=== PATIENT | male | born 1945 | race Caucasian/White ===

== ENCOUNTER 2018-12-22 17:11 | Observation (INO) ==
[2018-12-22] MEDS ORDERED: ZOFRAN INJ 4 MG VIAL IVP ONE (17:36)
[2018-12-22] MEDS ORDERED: NS 1000 ML 1,000 ML IV ONE (17:37)
[2018-12-22] MEDS ORDERED: MORPHINE SULFATE INJ 2 MG INJ IVP ONE (17:37)
[2018-12-22] MEDS ORDERED: NS 1000 ML 1,000 ML ONE (17:38)
[2018-12-22] MEDS ORDERED: ZOFRAN INJ 4 MG VIAL ONE (17:38)
[2018-12-22] MEDS ORDERED: MORPHINE SULFATE INJ 2 MG INJ ONE (17:39)
--- NOTE | 2018-12-22 17:39 | DR.ABDMALE ---
HPI - Time seen Time seen: 17:36 - PCP Primary Care Physician: VIRAL - Complaint Chief Complaint Doctors Comments: Patient is complaining of RUQ and right CVA pain for the past seven days getting progressively worst today with patient not able to eat or keep anything down. States he is a patient of Dr. Stratton and was told he had cirrhosis of the liver and had gallstones but they were not bad enough for them to come out. states the pain is 10 of 10 and is worst when he moves and bends. states she has been having SOB but denies chest pain, cold or cough. He denies any recent trauma. Chief Complaint:: PT. C/O RUQ PAIN X N/V X 2 WEEKS. PT. STATES 2 YEARS AGO HE WAS TOLD HE HAD A BAD GALLBLADDER. PT. ALSO C/O SHORTNESS OF BREATH. - Reviewed Nurses Notes Review: Yes - Mode of arrival Mode of Arrival: Ambulatory - Timing Onset of Chief Complaint: 12/08/18 Came on: Gradually - Duration Duration: Constant How lon Duration: Days - Location Location: RUQ - Severity Severity: Moderate, Severe - Quality Quality: Aching, Sharp - Context Onset: Suddenly History of: Similar pain (dx) - Modifying factors Worsening Factors: Exertion, Position, Movement Improving Factors: Nothing - Associated signs and symptoms Associated Signs and Symptoms: Nausea, Vomiting PMH - PMH Past Medical History: Yes Past Medical History: Hypertension Past Medical History Comment: CIRRHOSIS, SKIN CANCER Past Surgical History: Yes Surgical History: Other Past Surgical History Comment: SKIN CANCER REMOVAL - Family History History of Family Medical Conditions: No - Social History Does patient currently use any type of tobacco product: No Have you used tobacco products in the last 12 months: No Type of Tobacco Use: None Does any household member use tobacco: No Alcohol Use: None Do you use any recreational Drugs:: No Lives With: Family Lives Where: Home - infectious screening In the last 2 months have you had wt loss of >10#?: NO Have you had fever, night sweats or hemotysis?: No Have you traveled outside the country in the last 6 months?: No Isolation: Standard ROS - Review of Systems Constitutional: No Symptoms Reported, Weakness, Loss of Appetite Eyes: No Symptoms Reported ENTM: No Symptoms Reported Respiratoy: No Symptoms Reported, Short of Breath Cardiovascular: No Symptoms Reported. negative: See HPI, Chest Pain, Edema, Palpitations, Syncope, Cyanosis, Skin Mottling, Other Gastrointestinal/Abdominal: No Symptoms Reported, Abdominal Pain, Nausea, Vomiting Genitourinary: No Symptoms Reported. negative: See HPI, Discharge, Dysuria, Frequency, Hematuria, Pain, Bleeding, Other Neurological: No Symptoms Reported Musculoskeletal: No Symptoms Reported Integumentary: No Symptoms Reported. negative: See HPI, Change in Color, Change in Hair/Nails, Dryness, Lesions, Lumps, Rash, Itching, Wound, Bruises, Juandice, Other Hematologic/Lymphatic: No Symptoms Reported Endocrine: No Symptoms Reported Psychiatric: No Symptoms Reported. negative: See HPI, Anxiety, Depression, H allucinations, Excessive crying, Suicidal, Other PE - General Limitations: No Limitations General Appearance: Alert, In Distress (moderate) - Head Head Exam: Normal Inspection, Normocephalic. negative: Atraumatic (left ear partially removed) - Eyes Eye exam: Normal Appearance, PERRL, EOMI. negative: Scleral Icterus, Conjunctival Injection, Nystagmus, Miosis, Mydrasis, Periorbital Swelling, Periorbital Tenderness, Other - ENT ENT Exam: Normal Exam, Normal Oropharynx, Normal External Ear Exam, Mucous Membranes Moist, TM's Normal Bilaterally - Neck Neck Exam: Normal Inspection, Full ROM, Trachea Midline - Chest Chest Inspection: Normal Inspection, Symmetric Chest Wall Rise - Respiratory Respiratory Exam: Normal Lung Sounds Bilat Respiratory Exam: Bilateral Clear to Auscultation - Cardiovascular Cardiovascular Exam: Regular Rate, Normal Rhythm, Normal Heart Sounds - Abdominal Exam Abdominal Exam: Normal Inspection, Normal Bowel Sounds, Soft, Tenderness (RUQ t enderness), Guarding, Dimnished Bowel Sounds Abdominal Tenderness: RUQ, RLQ, Moderate - Rectal Rectal Exam: Deferred - Back Back Exam: (R) CVA Tenderness - Extremeties Extremities Exam: Normal Inspection, Full ROM, Normal Capillary Refill. negative: Tenderness, Edema, Joint Swelling, Calf Tenderness, Other - Exam: Male: Deferred - Neurologic Neurological Exam: Alert, Oriented X3, CN II-XII Intact, Normal Gait, Reflexes Normal - Psychiatric Psychiatric Exam: Normal Affect, Normal Mood - Skin Skin Exam: Warm, Dry, Intact, Normal Color - Vital Signs Vital Signs: Temp Pulse Pulse Resp BP BP Pulse Ox 12/22/18 18:00 66 22 160/80 100 12/22/18 17:51 24 12/22/18 17:27 96 H 25 H 140/86 100 12/22/18 17:16 98.3 F 93 H 26 H 126/77 100 Course - Reevaluation 1st: Improved - Consultation Called: 20:44 Call Returned: 20:44 (Dr. Corbett to admit) - Education/Counseling Education/Counseling: Patient, Family Educated On: Treatment, Diagnosis, Prognosis, Needs for Follow Up ROR - Labs Reviewed Laboratory Results Reviewed?: Yes (All labs and x-ray results reviewed and discussed with patient) Result Diagrams: 12/22/18 17:25 12/22/18 17:25 - XRAY XRAY Interpreted by: Radiologist (CT abdomen: Abnormal bowel wall thickening and inflammation segment of duodenum suggest peptic ulcer or duodenitis/eneteritis) - EKG Rate: 62 [place]: Normal Rhythm: NSR Block: None Hypertrophy: None ST: Normal, Nonsp - Labs Reviewed Laboratory: WBC 7.1 X10^3/uL (3.6-10.0) 12/22/18 17:25 RBC 4.50 X10^6/uL (4.7-6.0) L 12/22/18 17:25 Hgb 14.3 g/dL (13.5-18.0) 12/22/18 17:25 Hct 41.1 % (42.0-54.0) L 12/22/18 17:25 MCV 91.5 fL (80.0-100.0) 12/22/18 17:25 MCH 31.7 pg (27.0-34.0) 12/22/18 17:25 MCHC 34.7 g/dL (33.0-35.0) 12/22/18 17:25 RDW 13.1 % (11.6-16.5) 12/22/18 17:25 Plt Count 185 X10^3/uL (150.0-450.0) 12/22/18 17:25 MPV 6.9 fL (7.4-11.0) L 12/22/18 17:25 Neut % (Auto) 79.1 % (42.0-75.0) H 12/22/18 17:25 Lymph % (Auto) 14.0 % (21.0-51.0) L 12/22/18 17:25 [place] % (Auto) 5.8 % (0.0-13.0) 12/22/18 17:25 Eos % (Auto) 0.2 % (0.9-2.9) L 12/22/18 17:25 Baso % (Auto) 0.9 % (0.2-1.0) 12/22/18 17:25 Neut # (Auto) 5.6 x10^3/uL (2.2-4.8) H 12/22/18 17:25 Lymph # (Auto) 1.0 X10^3/uL (1.3-2.9) L 12/22/18 17:25 [place] # (Auto) 0.4 x10^3/uL (0.3-0.8) 12/22/18 17:25 Eos # (Auto) 0.0 x10^3/uL (0.0-0.2) 12/22/18 17:25 Baso # (Auto) 0.1 X10^3/uL (0.0-0.1) 12/22/18 17:25 Absolute Nucleated RBC 0.0 /100WBC 12/22/18 17:25 INR Target Range - 12/22/18 17:25 INR 1.08 (0.8-1.3) 12/22/18 17:25 APTT 31.9 SECONDS (22.9-36.5) 12/22/18 17:25 PTT Comment - 12/22/18 17:25 Sodium 139 mmol/L (136-145) 12/22/18 17:25 Corrected Sodium TNP 12/22/18 17:25 Potassium 3.9 mmol/L (3.5-5.1) 12/22/18 17:25 Chloride 101 mmol/L (98-107) 12/22/18 17:25 Carbon Dioxide 24.3 mmol/L (21-32) 12/22/18 17:25 BUN 14 mg/dL (7-18) 12/22/18 17:25 Creatinine 1.27 mg/dL (0.70-1.30) 12/22/18 17:25 Est GFR (MDRD) Af Amer > 60 (>60) 12/22/18 17:25 Est GFR (MDRD) Non-Af 59 (>60) 12/22/18 17:25 Glucose 109 mg/dL (65-99) H 12/22/18 17:25 Calcium 9.6 mg/dL (8.5-10.1) 12/22/18 17:25 Corrected Calcium TNP 12/22/18 17:25 Magnesium 2.1 mg/dL (1.7-2.9) 12/22/18 18:05 Total Bilirubin 0.70 mg/dL (0.2-1.0) 12/22/18 17:25 AST 21 Units/L (15-37) 12/22/18 17:25 ALT 13 Units/L (12-78) 12/22/18 17:25 Alkaline Phosphatase 95 Units/L (46-116) 12/22/18 17:25 Ammonia < 10 umol/L (11-32) L 12/22/18 18:05 Creatine Kinase 62 Units/L (39-308) 12/22/18 18:05 CK-MB (CK-2) < 1.0 ng/mL (0-4.0) 12/22/18 18:05 CK/CKMB % Calc 1.6 % (<4) 12/22/18 18:05 Troponin I < 0.02 ng/mL (0-1.5) 12/22/18 18:05 Total Protein 8.3 g/dL (6.4-8.2) H 12/22/18 17:25 Albumin 4.3 g/dL (3.4-5.0) 12/22/18 17:25 Globulin 4.0 g/dL (2.5-4.5) 12/22/18 17:25 Albumin/Globulin Ratio 1.1 Ratio (1.1-2.1) 12/22/18 17:25 Amylase 53 Units/L (25-115) 12/22/18 17:25 Lipase 168 Units/L (73-393) 12/22/18 17:25 - Diagnosis Discharge Problem: Acute duodenitis, COPD (chronic obstructive pulmonary disease), Constipation Abdominal pain Qualifiers: Abdominal location: generalized Qualified Code(s): R10.84 - Generalized abdominal pain - Discharge Plan Disposition: ADMITTED INPATIENT Condition: Stable - Follow ups/Referrals Follow ups/Referrals: Jesus Alberto STRATTON [Primary Care Provider] - 3 days - Instructions
[2018-12-22] MEDS ORDERED: TORADOL 30 MG VIAL ONE (17:43)
[2018-12-22] MEDS ORDERED: TORADOL 30 MG VIAL IVP ONE (17:50)
[2018-12-22 17:55] LABS: BASOPHILS # (AUTO) 0.1 X10^3/uL (0.0-0.1); BASOPHILS % (AUTO) 0.9 % (0.2-1.0); EOSINOPHILS % (AUTO) 0.2 % (0.9-2.9); HEMATOCRIT 41.1 % (42.0-54.0); HEMOGLOBIN 14.3 g/dL (13.5-18.0); MEAN CORPUSCULAR HEMOGLOBIN 31.7 pg (27.0-34.0); MEAN CORPUSCULAR HGB CONC 34.7 g/dL (33.0-35.0); MEAN CORPUSCULAR VOLUME 91.5 fL (80.0-100.0); MEAN PLATELET VOLUME 6.9 fL (7.4-11.0); MONOCYTES # (AUTO) 0.4 x10^3/uL (0.3-0.8); MONOCYTES % (AUTO) 5.8 % (0.0-13.0); NEUTROPHILS # (AUTO) 5.6 x10^3/uL (2.2-4.8); NEUTROPHILS % (AUTO) 79.1 % (42.0-75.0); PLATELET COUNT 185 X10^3/uL (150.0-450.0); RED CELL DISTRIBUTION WIDTH 13.1 % (11.6-16.5); WHITE BLOOD COUNT 7.1 X10^3/uL (3.6-10.0)
--- NOTE | 2018-12-22 18:12 | CT ---
History: RUQ abdominal pain. Concern for acute abnormalities. Exam: Non-contrast CT examination of the abdomen & pelvis. Technique: Multiple CT images of the abdomen and pelvis were obtained from the lung bases to the pubic symphysis without the IV administration of radiopaque contrast. Findings: The lung bases are clear. The heart is normal in size without a pericardial effusion. Noncontrast CT images of the liver, gallbladder, stomach, spleen, adrenal glands, and kidneys are unremarkable in appearance. There is a small hiatal hernia. There is abnormal bowel wall thickening and inflammation seen within the 1st and 2nd portions of the duodenum with either an inflamed peptic ulcer or duodenitis/enteritis with a duodenal diverticulum seen on image number 26 of series 3. Follow-up endoscopy/upper GI series is recommended when the patient is improved. There is no free air appreciated. There is no bowel obstruction or evidence for an abscess. There is a uputnofk-di-iadyq quantity of colonic stool. There is a normal appendix. No other acute or significant intraperitoneal abnormalities are observed, other than an enlarged prostate gland. Please correlate with PSA levels. Diffuse aortic and iliac atherosclerosis is also present. No obstructing renal stone is observed. No other acute or significant abdominopelvic process is appreciated. There is a bone island seen in the left acetabulum. No other bony lesions are appreciated. Impression: Abnormal bowel wall thickening and inflammation seen affecting the 1st and 2nd portions/segments of the duodenum with either an inflamed peptic ulcer or acute duodenitis/enteritis (with a duodenal diverticulum) seen in the duodenal wall on image # 26 of series 3. Follow-up endoscopy/upper GI series is recommended when the patient is improved. No free air appreciated. No bowel obstruction or evidence for an abscess. Reported By:
[2018-12-22 18:13] LABS: ALANINE AMINOTRANSFERASE 13 Units/L (12-78); ALBUMIN 4.3 g/dL (3.4-5.0); ALKALINE PHOSPHATASE 95 Units/L (46-116); AMYLASE 53 Units/L (25-115); ASPARTATE AMINO TRANSFERASE 21 Units/L (15-37); BLOOD UREA NITROGEN 14 mg/dL (7-18); CALCIUM 9.6 mg/dL (8.5-10.1); CARBON DIOXIDE 24.3 mmol/L (21-32); CHLORIDE 101 mmol/L (98-107); CREATININE 1.27 mg/dL (0.70-1.30); LIPASE 168 Units/L (73-393); SODIUM 139 mmol/L (136-145); TOTAL PROTEIN 8.3 g/dL (6.4-8.2); eGFR NON BLACK RACES 59 (>60)
--- NOTE | 2018-12-22 18:16 | RAD ---
Portable chest Clinical indication: Shortness of breath and chest pain Findings: The lungs are hyperexpanded. There is mild biapical pleural thickening. No infiltrates or edema identified. Pleural spaces are clear. Heart size is normal. There is no evidence of free air or pneumothorax. Impression: Radiographic features of chronic obstructive pulmonary disease with no consolidating pulmonary infiltrates. Reported By:
[2018-12-22 18:21] LABS: AMMONIA < 10 umol/L (11-32)
[2018-12-22 18:31] LABS: CREATINE KINASE 62 Units/L (39-308); CREATINE KINASE MB < 1.0 ng/mL (0-4.0); MAGNESIUM 2.1 mg/dL (1.7-2.9); TROPONIN I < 0.02 ng/mL (0-1.5)
[2018-12-22 18:38] LABS: CKMB % 1.6 % (<4)
[2018-12-22] MEDS ORDERED: ROCEPHIN VIAL 1 GRAM IVP ONE (19:09)
[2018-12-22] MEDS ORDERED: ROCEPHIN VIAL 1 GRAM ONE (19:57)
[2018-12-22 21:19] LABS: BILIRUBIN,URINE NEGATIVE (NEGATIVE); BLOOD/HEMOGLOBIN,URINE NEGATIVE (NEGATIVE); GLUCOSE, URINE NEGATIVE (NEGATIVE); KETONES,URINE NEGATIVE (NEGATIVE); LEUKOCYTE ESTERASE ,URINE NEGATIVE (NEGATIVE); NITRITES,URINE NEGATIVE (NEGATIVE); PROTEIN,URINE NEGATIVE (NEGATIVE); UROBILINOGEN,URINE NORMAL (NORMAL)
[2018-12-22 21:21] LABS: APPEARANCE,URINE CLEAR (CLEAR); COLOR,URINE YELLOW (YELLOW)
[2018-12-22] MEDS ORDERED: DULCOLAX TAB EC 5 MG PO ONE (21:22)
[2018-12-22] MEDS: TORADOL 30 MG VIAL IVP PRN (22:53)
[2018-12-22] MEDS: CHRONULAC PO SCH (22:53)
[2018-12-22] MEDS: ZOFRAN INJ 4 MG VIAL IVP PRN (22:53)
[2018-12-22] MEDS: PROTONIX TAB 40 MG PO SCH (22:53)
[2018-12-22] MEDS: NS 1/2 + KCL 20 MEQ/L 1,000 ML IV SCH (22:53)
[2018-12-23] MEDS: ZOFRAN INJ 4 MG VIAL IVP PRN ×2 (03:55→08:27)
[2018-12-23 06:06] LABS: BASOPHILS % (AUTO) 0.6 % (0.2-1.0); HEMATOCRIT 35.4 % (42.0-54.0); HEMOGLOBIN 12.5 g/dL (13.5-18.0); LYMPHOCYTES # (AUTO) 0.4 X10^3/uL (1.3-2.9); LYMPHOCYTES % (AUTO) 7.5 % (21.0-51.0); MEAN CORPUSCULAR HEMOGLOBIN 32.4 pg (27.0-34.0); MEAN CORPUSCULAR HGB CONC 35.3 g/dL (33.0-35.0); MEAN CORPUSCULAR VOLUME 91.6 fL (80.0-100.0); MONOCYTES # (AUTO) 0.5 x10^3/uL (0.3-0.8); MONOCYTES % (AUTO) 8.2 % (0.0-13.0); NEUTROPHILS # (AUTO) 4.8 x10^3/uL (2.2-4.8); NEUTROPHILS % (AUTO) 83.7 % (42.0-75.0); PLATELET COUNT 133 X10^3/uL (150.0-450.0); RED BLOOD COUNT 3.86 X10^6/uL (4.7-6.0); RED CELL DISTRIBUTION WIDTH 13.1 % (11.6-16.5); WHITE BLOOD COUNT 5.7 X10^3/uL (3.6-10.0)
[2018-12-23 06:11] LABS: BLOOD UREA NITROGEN 19 mg/dL (7-18); CALCIUM 8.5 mg/dL (8.5-10.1); CARBON DIOXIDE 24.8 mmol/L (21-32); CHLORIDE 106 mmol/L (98-107); CREATININE 1.14 mg/dL (0.70-1.30); SODIUM 141 mmol/L (136-145); eGFR NON BLACK RACES > 60 (>60)
[2018-12-23] MEDS ORDERED: POTASSIUM CHLORIDE LIQ 20 MEQ UDC PO PRN (06:24)
[2018-12-23] MEDS ORDERED: MICRO K EXTEN CAP 10 MEQ PO PRN (06:24)
[2018-12-23] MEDS ORDERED: K-RIDER 10 MEQ/NS 100 ML 10 MEQ/100 ML BAG IV PRN (06:24)
[2018-12-23] MEDS ORDERED: KLOR-CON PO PRN (06:24)
[2018-12-23] MEDS ORDERED: POTASSIUM CHL 60 MEQ/NS 0.45% 500 ML IV PRN (06:24)
[2018-12-23] MEDS ORDERED: POTASSIUM CHL 40 MEQ/NS 0.45% 500 ML IV PRN (06:24)
[2018-12-23] MEDS ORDERED: MAGNESIUM SULFATE 1 GRAM/100 mL PREMIX 1 GM/100 ML BAG IV PRN (06:24)
[2018-12-23] MEDS ORDERED: K-DUR TAB 20 MEQ PO PRN (06:24)
[2018-12-23 07:44] VITALS: BMI 18.6
[2018-12-23] MEDS: PROTONIX TAB 40 MG PO SCH (08:30)
[2018-12-23] MEDS: CHRONULAC PO SCH (08:30)
[2018-12-23] MEDS: NS 1/2 + KCL 20 MEQ/L 1,000 ML IV SCH (11:02)
[2018-12-23] MEDS: FLAGYL IV PREMIX 500 MG BAG 500 MG/100 ML BAG IV SCH ×2 (14:11→20:49)
[2018-12-23] MEDS: CIPRO IV 400 MG PREMIX* 400 MG/200 ML IV.SOLN. IV SCH ×2 (14:11→21:01)
[2018-12-23] MEDS ORDERED: BUTT CREAM (COMPOUND) TOP PRN (14:21)
[2018-12-23 14:43] LABS: STOOL FOR WBC NEGATIVE (NEGATIVE)
[2018-12-23 16:12] LABS: CRYPTOSPORIDIUM PARVUM ANTIGEN NEGATIVE (NEGATIVE); GIARDIA LAMBLIA ANTIGEN NEGATIVE (NEGATIVE)
[2018-12-23] MEDS: TORADOL 30 MG VIAL IVP PRN (17:45)
--- NOTE | 2018-12-23 18:15 | DR.H&P ---
H&P - History & Physical for Day of: H&P Date: 12/22/18 - Chief Complaint Chief Complaint: ABDOMINAL PAIN - History of Present Illness History of Present Illness: IS A 73 YEAR OLD PATIENT OF WHO PRESENTED TO THE ER WITH COMPLAINTS OF RUQ PAIN AND NAUSEA/VOMITING X 2 WEEKS. HE ALSO REPORTED SHORTNESS OF BREATH. HE REPORTED THAT PAIN GOT PROGRESSIVELY WORSE TODAY AND HE HAS BEEN UNABLE TO EAT OR KEEP ANYTHING DOWN. HE STATES THAT TOLD HIM THAT HE HAS CIRRHOSIS OF THE LIVER AND GALLSTONES. PAIN IS DESCRIBED SHARP AND SEVERE. HE RATES PAIN 10/10. ON ARRIVAL TO THE ER, VITAS WERE 98.3-93-26-100%-RA-126/77. LABS WERE OBTAINED. ABNORMAL LAB VALUES INCLUDE THE FOLLOWING: RBC 4.50, HCT 41.1, GLUCOSE 109, TOTAL PROTEIN 8.3. AN ABDOMEN/PELVIS CT WAS OBTAINED AND REVEALED: Abnormal bowel wall thickening and inflammation seen affecting the 1st and 2nd portions/segments of the duodenum with either an inflamed peptic ulcer or acute duodenitis/enteritis (with a duodenal diverticulum) seen in the duodenal wall. Follow-up endoscopy/upper GI series is recommended when the patient is improved. No free air appreciated. No bowel obstruction or evidence for an abscess. There is a myyssyzu-bu-kkphg quantity of colonic stool. No other acute or significant intraperitoneal abnormalities are observed, other than an enlarged prostate gland. Please correlate with PSA levels. A CHEST XRAY WAS OBTAINED AND REVEALED: Radiographic features of chronic obstructive pulmonary disease with no consolidating pulmonary infiltrates. EKG WAS OBTAINED AND REVEALED: SINUS RHYTHM WITH HR 62. HE WAS GIVEN DULCOLAS 10MG POX 1, ROCEPHIN 1G IV X 1 DOSE, TORADOL 30MG IV X 1, ZOFRAN 4MG IV X 1, AND A NORMAL SALINE BOLUS. HE WAS ADMITTED FOR ABDOMINAL PAIN, ACUTE DUODENITIS, AND NAUSEA/VOMITING. HE WAS STARTED ON IV CIPRO, IV FLAGYL, PROTONIX 40MG IV BID, CHRONULAC 30ML PO DAILY, TORADOL 30MG IV Q6H, AND ZOFRAN 4MG IV Q6H PRN. HE WAS ALSO STARTED ON 1/2NS WITH 20MEQ KCL AT 80ML/HR. WE PLAN TO FOLLOW UP WITH AM LABS AND CONTINUE TO MONITOR. - Past Medical History Past Medical History: COPD, GERD, Hypertension Additional Medical History: CIRRHOSIS, BILATERAL INGUINAL HERNIAS, GI BLEED, GALLSTONES - Past Surgical History Surgical History: Other Additional Surgical History: SKIN CANCER REMOVED - Family History Family Medical History: ID - Social History Does patient currently use any type of tobacco product: Yes Have you used tobacco products in the last 12 months: Yes Type of Tobacco Use: Smokeless Does any household member use tobacco: No Alcohol Use: None Drug Use: None - Medications Home Medications: morphine Adverse Reaction (Verified 12/22/18 17:42) - Review of Systems Constitutional: No Symptoms Reported Eyes: No Symptoms Reported ENT: No Symptoms Reported Respiratory: Shortness of Breath Cardiovascular: No Symptoms Reported Gastrointestinal: Nausea, Vomiting, Abdominal Pain, Diarrhea Genitourinary: No Symptoms Reported Musculoskeletal: No Symptoms Reported Skin: No Symptoms Reported Neurological: No Symptoms Reported - Physical Exam Vital Signs: Temperature 98.2 F Pulse Rate [Right Brachial] 83 Pulse Rate 93 Respiratory Rate 18 Blood Pressure [Left Arm] 153/67 Blood Pressure [Right Arm] 134/78 Blood Pressure 126/77 O2 Sat by Pulse Oximetry 96 Oriented: Normal Eyes: Normal Ear: Normal Nose: Normal Throat: Normal Respiratory: Diminished Throughout Cardiovascular: Normal. negative: Tachycardia, Bradycardia, S3, S4, Murmur : Normal Auscultation: Bowel Sounds: Normal Palpation: Normal Tenderness: Normal Skin: Normal Musculoskeletal: Normal Psychiatric: Normal Mood Description: Calm Affect: Normal Speech Pattern: Clear - Assessment/Plan (1) Acute duodenitis Status: Acute Plan: IV ANTIBIOITCS, IV FLUIDS, PAIN AND NAUSEA CONTROL, CONTINUE TO MONITOR (2) Abdominal pain Qualifiers: Abdominal location: generalized Qualified Code(s): R10.84 - Generalized abdominal pain Status: Acute (3) Constipation Status: Acute Plan: DULCOLOX 10MG PO X 1, CHRONULAC 30ML PO DAILY, CONTINUE TO MONITOR - Allergies Allergies/Adverse Reactions: Allergies Allergy/AdvReac Type Severity Reaction Status Date / Time morphine AdvReac Verified 12/22/18 17:42
[2018-12-23] MEDS: PROTONIX INJ 40 MG VIAL IVP SCH (20:48)
[2018-12-23] MEDS ORDERED: RESTORIL CAP 15 MG PO PRN (20:48)
[2018-12-24] MEDS: NS 1/2 + KCL 20 MEQ/L 1,000 ML IV SCH (00:25)
[2018-12-24] MEDS: FLAGYL IV PREMIX 500 MG BAG 500 MG/100 ML BAG IV SCH ×2 (02:54→08:46)
[2018-12-24 05:23] LABS: BASOPHILS % (AUTO) 0.9 % (0.2-1.0); EOSINOPHILS % (AUTO) 0.7 % (0.9-2.9); HEMATOCRIT 28.3 % (42.0-54.0); HEMOGLOBIN 9.8 g/dL (13.5-18.0); LYMPHOCYTES # (AUTO) 0.8 X10^3/uL (1.3-2.9); LYMPHOCYTES % (AUTO) 22.8 % (21.0-51.0); MEAN CORPUSCULAR HEMOGLOBIN 32.4 pg (27.0-34.0); MEAN CORPUSCULAR HGB CONC 34.8 g/dL (33.0-35.0); MEAN CORPUSCULAR VOLUME 92.9 fL (80.0-100.0); MEAN PLATELET VOLUME 7.1 fL (7.4-11.0); MONOCYTES # (AUTO) 0.4 x10^3/uL (0.3-0.8); MONOCYTES % (AUTO) 10.3 % (0.0-13.0); NEUTROPHILS # (AUTO) 2.3 x10^3/uL (2.2-4.8); NEUTROPHILS % (AUTO) 65.3 % (42.0-75.0); PLATELET COUNT 104 X10^3/uL (150.0-450.0); RED BLOOD COUNT 3.04 X10^6/uL (4.7-6.0); RED CELL DISTRIBUTION WIDTH 13.1 % (11.6-16.5); WHITE BLOOD COUNT 3.6 X10^3/uL (3.6-10.0)
[2018-12-24 05:34] LABS: ALANINE AMINOTRANSFERASE 12 Units/L (12-78); ALBUMIN 2.9 g/dL (3.4-5.0); ALKALINE PHOSPHATASE 61 Units/L (46-116); ASPARTATE AMINO TRANSFERASE 23 Units/L (15-37); BLOOD UREA NITROGEN 19 mg/dL (7-18); CALCIUM 7.8 mg/dL (8.5-10.1); CARBON DIOXIDE 23.7 mmol/L (21-32); CHLORIDE 107 mmol/L (98-107); COR CA(FOR HYPOALB) 8.7 mg/dL (8.5-10.1); CREATININE 1.06 mg/dL (0.70-1.30); SODIUM 139 mmol/L (136-145); TOTAL PROTEIN 5.8 g/dL (6.4-8.2); eGFR NON BLACK RACES > 60 (>60)
[2018-12-24 05:37] LABS: TOTAL PSA 3.26 ng/mL (0.13-4.0)
[2018-12-24] MEDS: CIPRO IV 400 MG PREMIX* 400 MG/200 ML IV.SOLN. IV SCH (08:46)
[2018-12-24] MEDS: PROTONIX INJ 40 MG VIAL IVP SCH (08:46)
[2018-12-24] MEDS: CHRONULAC PO SCH (08:46)
[2018-12-24 12:22] VITALS: BP 124/62
== END 2018-12-24 13:40 | disposition home or self-care (01) ==
LOC: MED/SURG 17:15 → ER 17:15 → MED/SURG 21:52
PROVIDERS: ADMIT Internal Medicine; ATTEND Internal Medicine
DX: I10 Essential (primary) hypertension; R11.2 Nausea with vomiting, unspecified; R06.02 Shortness of breath; K59.09 Other constipation; K29.80 Duodenitis without bleeding; K21.9 Gastro-esophageal reflux disease without esophagitis; R10.84 Generalized abdominal pain; J44.9 Chronic obstructive pulmonary disease, unspecified
CPT/HCPCS: 36415; 71010; 71045; 74176; 80048; 80053; 81003; 82140; 82150; 82270; 82550; 82553; 83630; 83690; 83735; 84153; 84484; 85025; 85610; 85730; 87045; 87328; 87329; 87427; 87449; 87493; 87899; 93005; 96365; 96367; 96374; 96375; 99284; A4216; A4222; C9113; J7030; S0030; G0378; J0696; J0744; J1885; J2270; J2405